=== PATIENT | female | born 1955 | race Caucasian/White ===

== ENCOUNTER 2021-12-30 12:24 | Emergency (ER) | payer MEDICARE ==
[~2021-12-30] VITALS: Ht 165.1 cm; Wt 80.7 kg
[2021-12-30] MEDS ORDERED: PREDNISONE20 M1 PO (16:05)
[2021-12-30] MEDS ORDERED: PEPCID20 MG PO (16:05)
== END 2021-12-30 16:26 | disposition home or self-care (01) ==
LOC: ED 12:24
DX: T63.441A Toxic effect of venom of bees, accidental (unintentional), initial encounter (principal); Y92.89 Other specified places as the place of occurrence of the external cause